=== PATIENT | male | born 1990 | race Caucasian/White ===

== ENCOUNTER 2016-09-26 22:07 | Emergency (ER) | payer OTHER ==
[2016-09-26] MEDS ORDERED: Lidocaine 1% 50 ML MDV INJECT ONE (22:40)
--- NOTE | 2016-09-26 23:14 | EDM.PDOC ---
ED HPI GENERAL MEDICAL PROBLEM - General Chief Complaint: Laceration Stated Complaint: HAND INJURY Time Seen by Provider: 09/26/16 22:36 Source of Information: Reports: Patient History Limitations: Reports: No Limitations - History of Present Illness INITIAL COMMENTS - FREE TEXT/NARRATIVE: The patient was at work and he was going over a barbed wire fence and he cut his left hand. He is right handed and his tetanus is up to date. Onset: today, sudden Duration: Hour(s): Location: Reports: upper extremity, left (hand) Quality: Reports: Sharp Severity: mild Improves with: Reports: None Worsens with: Reports: None Context: Reports: Activity (climbing over a fence) Associated Symptoms: Reports: no other symptoms - Related Data Allergies Allergy/AdvReac Type Severity Reaction Status Date / Time No Known Allergies Allergy Verified 09/26/16 22:27 Home Meds: Home Meds . [No Known Home Meds] 09/26/16 [History] Past Medical History - Past Health History Medical/Surgical History: Denies Medical/Surgical History Social & Family History - Tobacco Use Smoking Status *Q: Never Smoker - Caffeine Use Caffeine Use: Reports: Coffee - Recreational Drug Use Recreational Drug Use: No ED ROS GENERAL - Review of Systems Review Of Systems: See Below Constitutional: Reports: No Symptoms HEENT: Reports: No Symptoms Respiratory: Reports: No Symptoms Cardiovascular: Reports: No Symptoms Endocrine: Reports: No Symptoms GI/Abdominal: Reports: No Symptoms : Reports: No Symptoms Musculoskeletal: Reports: Other (Laceration to his left hand) ED EXAM, SKIN/RASH Exam: See Below Exam Limited By: No Limitations General Appearance: Alert, No Apparent Distress Ears: Normal External Exam Nose: Normal Inspection Head: Atraumatic, Normocephalic Neck: Normal Inspection Respiratory/Chest: No Respiratory Distress Extremities: Other (4cm laceration to the left hand between the thumb and finger. He has good sensation and capillary refill and there is no tendon laceration) ED SKIN PROCEDURES - Laceration/Wound Repair Left Hand Lac/wound length in cm: 4 Appearance: subcutaneous, linear Distal NVT: neuro & vascular intact, no tendon injury Anesthetic type: local Local anesthesia - Lidocaine (Xylocaine): 1% plain Skin prep: saline Exploration/Debridement/Repair: wound explored, in a bloodless field, explored to base Closed with: sutures Suture size: 4-0 # of sutures: 5 Suture type: nylon, interrupted, simple Tetanus status addressed: Yes Complications: No Course - Orders/Labs/Meds Meds: Medications Discontinued Medications Generic Name Dose Route Start Last Admin Trade Name Edouard PRN Reason Stop Dose Admin Lidocaine HCl 50 ml 09/26/16 22:40 Xylocaine 1% INJECT 09/26/16 22:41 ONETIME ONE Departure - Departure Time of Disposition: 23:15 Disposition: Home, Self-Care 01 Condition: good Clinical Impression: Laceration of left hand Qualifiers: Encounter type: initial encounter Foreign body presence: without foreign body Qualified Code(s): S61.412A - Laceration without foreign body of left hand, initial encounter - Discharge Information Instructions: Laceration Care, Adult, [id number] Referrals: Quynh Lee PA-C [Physician Dementia Program Director] - 1 Week Forms: ED Department Discharge, Return to Work/School Form Additional Instructions: Soak the wound in warm soapy water and apply antibiotic ointment after. Have the sutures removed in 1 week. Look for any signs of infection such as redness , swelling, pain or drainage. Please return if you have any problems.
[2016-09-26 23:18] VITALS: BP 115/73
== END 2016-09-26 23:25 | disposition home or self-care (01) ==
LOC: JD.ED 22:07
DX: S61.412A Laceration without foreign body of left hand, initial encounter (principal); W24.0XXA Contact with lifting devices, not elsewhere classified, initial encounter
CPT/HCPCS: 12002; 99282-25; 99283-25